=== PATIENT | male | born 2000 | race Hispanic/Latino ===

== ENCOUNTER 2023-08-16 10:58 | Emergency (ER) | payer OTHER ==
[~2023-08-16] VITALS: Ht 165.1 cm; Wt 83.5 kg
[2023-08-16] MEDS: KETOROLAC 30MG VIAL (30MG/ML) IM ONE (13:48)
[2023-08-16 14:35] VITALS: BP 141/72; PULSE 80; RESP 14; O2SAT 99
== END 2023-08-16 14:52 | disposition home or self-care (01) ==
LOC: EDH 10:58
DX: M25.552 Pain in left hip (principal)
CPT/HCPCS: 99283; 73503; 96372; J1885